=== PATIENT | female | born 1985 | race Caucasian/White ===

== ENCOUNTER → 2017-03-29 | Outpatient (CLI) | payer BC ==
[~2017-03-29] MED LIST: CALC500C3; DOCU50CA2; PRENTAB26 PO
== END | disposition home or self-care (01) ==
LOC: C.PAPS 11:58
PROVIDERS: ATTEND Obstetrics & Gynecology
DX: Z34.81 Encounter for supervision of other normal pregnancy, first trimester (principal)

== ENCOUNTER → 2017-03-29 | Outpatient (CLI) | payer BC ==
[2017-03-29 10:13] LABS: BASO % 0.2 %; BASO ABS # 0.02 K/uL (0-0.2); COMPLETE YES; EOS % 0.8 %; HEMATOCRIT 42.2 % (37-47); IG% 0.2 %; LYMPH % 16.8 %; LYMPH ABS # 1.44 K/uL (1.2-3.4); MEAN CELL VOLUME 89.8 fL (80-100); MEAN CORPUSCULAR HEMOGLOBIN 31.3 pg (25-34); MEAN CORPUSCULAR HGB CONC 34.8 g/dl (32-36); MEAN PLATELET VOLUME 11.9 fL (7.4-10.4); PLATELET COUNT 159 K/uL (130-400); WHITE BLOOD COUNT 8.58 K/uL (4.8-10.8)
[2017-03-29 11:29] LABS: URINE APPEARANCE TURBID (CLEAR); URINE BILIRUBIN NEG (NEG); URINE COLOR YELLOW; URINE NITRITE NEG (NEG); URINE PH 7.5 (4.5-7.5); URINE SPECIFIC GRAVITY 1.018 (1.000-1.030); UROBILINOGEN NEG (NEG)
[2017-03-29 11:30] LABS: MANUAL MICROSCOPIC REQUIRED? NO; REVIEW REQ? NO
[2017-03-30 13:32] LABS: CHLAMYDIA TRACH RNA*** NOT DETECTED (NOT DETECTED); GC (NEIS GONORRHOEAE)RNA** NOT DETECTED (NOT DETECTED)
== END | disposition home or self-care (01) ==
LOC: C.LAB1850 09:05
PROVIDERS: ATTEND Obstetrics & Gynecology
DX: Z34.81 Encounter for supervision of other normal pregnancy, first trimester (principal)

== ENCOUNTER → 2017-06-24 | Outpatient (CLI) | payer BC ==
[~2017-06-24] MED LIST changes: +METH0.2T39 PO; +METR500T PO; +OXYC-57 PO
== END | disposition home or self-care (01) ==
LOC: C.LAB1850 09:19
PROVIDERS: ATTEND Obstetrics & Gynecology
DX: O36.4XX0 Maternal care for intrauterine death, not applicable or unspecified (principal)

== ENCOUNTER → 2017-06-30 | Outpatient (CLI) | payer BC | END | disposition home or self-care (01) | LOC: C.LAB1850 10:49 | PROVIDERS: ATTEND Obstetrics & Gynecology | DX: O36.4XX0 Maternal care for intrauterine death, not applicable or unspecified (principal); Z3A.00 Weeks of gestation of pregnancy not specified ==

== ENCOUNTER 2017-12-29 20:34 | Emergency (ER) | payer BC, OTHER ==
[~2017-12-29] VITALS: Ht 162.6 cm; Wt 60.6 kg
[~2017-12-29 20:34] MED LIST changes: -CALC500C3; +CALC500C3 PO; -METR500T PO; -OXYC-57 PO
[2017-12-29 20:40] VITALS: TEMP 36.8; Ht 162.6 cm; Wt 60.6 kg
[2017-12-29 21:53] LABS: BASO % 0.5 %; BASO ABS # 0.04 K/uL (0-0.2); EOS % 2.3 %; EOS ABS # 0.17 K/uL (0-0.5); HEMATOCRIT 39.3 % (37-47); HEMOGLOBIN 13.6 g/dL (12.0-16.0); IG# 0.02 K/uL (0.00-0.02); LYMPH % 32.9 %; MEAN CELL VOLUME 88.9 fL (80-100); MEAN CORPUSCULAR HEMOGLOBIN 30.8 pg (25-34); MEAN CORPUSCULAR HGB CONC 34.6 g/dl (32-36); MEAN PLATELET VOLUME 10.7 fL (7.4-10.4); MONO % 6.4 %; MONO ABS # 0.47 K/uL (0.11-0.59); NEUT % 57.6 %; PLATELET COUNT 173 K/uL (130-400); RED CELL DISTRIBUTION WIDTH CV 11.8 % (11.5-14.5); RED CELL DISTRIBUTION WIDTH SD 38.6 fL (36.4-46.3)
[2017-12-29 22:12] LABS: ALBUMIN 3.8 gm/dl (3.4-5.0); TOTAL PROTEIN 7.5 gm/dl (6.4-8.2)
[2017-12-29] MEDS ORDERED: DOCU1TAB6 PO (22:18)
[2017-12-29 23:17] VITALS: BP 106/58; PULSE 56; O2SAT 98
--- NOTE | 2017-12-29 23:34 | EMERGENCY ROOM VISIT NOTE ---
History First contact with patient: 20:43 Chief Complaint: ABDOMINAL PAIN Stated Complaint: RIGHT ABDOMINAL PAIN History of Present Illness Patient is an otherwise healthy 32-year-old white female who presents emergency department for evaluation of right-sided abdominal pain that started fairly acutely about 2 and half hours ago. She reports that she just finished eating a dinner consisting of salmon, vegetables, sleep potatoes and rice from the pain started. She notes that it is in the right lower abdomen, radiating to the right upper abdomen underneath her ribs, and wrapping around to her back slightly. She states that she tried to have a bowel movement, which was successful and was normal for her, but did not change her pain. She also tried sipping on some tea without relief. She did not take any medications, and presently rates her pain a 5/10. She denies any nausea or vomiting. No urinary symptoms. Last menstrual period was about 1 week ago, and was normal for the patient. She denies any significant gynecologic history including ovarian cysts. She states that the pain is worse with movement, like bouncing in the car on the drive up. She has never had pain similar to this previously. Review of Systems Review of systems as per HPI. All other systems reviewed were negative. 10 systems reviewed. Past Medical/Surgical History Medical Problems: (1) Active labor at term (2) Intrauterine (3) No Known Active Medical Problems (4) Persistent occipitoposterior position (5) Prolonged rupture of membranes (6) Vaginal delivery Surgical Problems: (1) History of dilatation and curettage (2) History of wisdom tooth extraction Electronic medical records are reviewed and summarized as above/below. See Problem List. [id number] Social History Smoking Status: Never Smoker Alcohol Use: occasionally Marital Status: Housing Status: lives with family Current/Historical Medications Scheduled Multivit/Min/Iron/Fol Ac/Pren ( Vitamin), 1 TAB PO DAILY Scheduled PRN Calcium Carbonate (Tums), 1 TAB PO DIRECTED PRN for HEARTBURN/INDIGESTION Docusate Sodium (Docusate Sodium), 100 MG PO DIRECTED PRN for Constipation Physical Exam Vital Signs Date Time Temp Pulse Resp B/P (MAP) Pulse Ox O2 Delivery O2 Flow Rate FiO2 12/29/17 23:17 56 18 106/58 98 Room Air 12/29/17 20:40 36.8 74 18 119/72 99 Room Air Physical Exam CONSTITUTIONAL: Patient is a well-appearing 32-year-old white female who is awake and alert and in no acute distress EYES: Pupils equal, round, reactive to light and accommodation. EOMs intact without nystagmus. Sclera are anicteric. NECK: Supple without lymphadenopathy. No thyromegaly. No meningeal signs. Full active range of motion without discomfort. CARDIOVASCULAR: Regular rate and rhythm, with normal S1 and S2, no murmur or gallop or rub is heard. No carotid bruits auscultated. No JVD. Peripheral pulses easily palpable. RESPIRATORY: Breath sounds equal and clear to auscultation without wheezes, rales, or rhonchi heard. Full and equal chest expansion without accessory muscle use or retractions. ABDOMEN: Bowel sounds are present. Abdomen is soft, scaphoid, nondistended. Abdomen is nontender to percussion throughout. She has tenderness to deep palpation in the right lower quadrant primarily, very slight pain in the right upper quadrant, negative Good sign. No guarding, rebound or rigidity. No CVA tenderness. INTEGUMENTARY: No lesions or rash, normal skin turgor. LYMPH: No lymphadenopathy. Medical Decision & Procedures ER Provider Diagnostic Interpretation: Ultrasound per [facility] : Dr. Liang the uterus is normal in size. The endometrium is normal in thickness. The ovaries are normal in size and appearance. No free fluid in the pelvis. Per cardiac cath technician, appendix was not visualized by ultrasound and a lymph node was noted in the right lower quadrant. Laboratory Results 12/29/17 21:15 Red Blood Count 4.42, Mean Corpuscular Volume 88.9, Mean Corpuscular Hemoglobin 30.8, Mean Corpuscular Hemoglobin Concent 34.6, Mean Platelet Volume 10.7, Neutrophils (%) (Auto) 57.6, Lymphocytes (%) (Auto) 32.9, Monocytes (%) (Auto) 6.4, Eosinophils (%) (Auto) 2.3, Basophils (%) (Auto) 0.5, Neutrophils # (Auto) 4.20, Lymphocytes # (Auto) 2.40, Monocytes # (Auto) 0.47, Eosinophils # (Auto) 0.17, Basophils # (Auto) 0.04 12/29/17 21:15 Test 12/29/17 21:05 12/29/17 21:15 Urine Test NEG (NEG) White Blood Count 7.30 K/uL (4.8-10.8) Red Blood Count 4.42 M/uL (4.2-5.4) Hemoglobin 13.6 g/dL (12.0-16.0) Hematocrit 39.3 % (37-47) Mean Corpuscular Volume 88.9 fL (80-100) Mean Corpuscular Hemoglobin 30.8 pg (25-34) Mean Corpuscular Hemoglobin Concent 34.6 g/dl (32-36) Platelet Count 173 K/uL (130-400) Mean Platelet Volume 10.7 fL (7.4-10.4) Neutrophils (%) (Auto) 57.6 % Lymphocytes (%) (Auto) 32.9 % Monocytes (%) (Auto) 6.4 % Eosinophils (%) (Auto) 2.3 % Basophils (%) (Auto) 0.5 % Neutrophils # (Auto) 4.20 K/uL (1.4-6.5) Lymphocytes # (Auto) 2.40 K/uL (1.2-3.4) Monocytes # (Auto) 0.47 K/uL (0.11-0.59) Eosinophils # (Auto) 0.17 K/uL (0-0.5) Basophils # (Auto) 0.04 K/uL (0-0.2) RDW Standard Deviation 38.6 fL (36.4-46.3) RDW Coefficient of Variation 11.8 % (11.5-14.5) Immature Granulocyte % (Auto) 0.3 % Immature Granulocyte # (Auto) 0.02 K/uL (0.00-0.02) Anion Gap 4.0 mmol/L (3-11) Est Creatinine Clear Calc Drug Dose 69.8 ml/min Estimated GFR () 86.3 Estimated GFR (Non- 74.5 BUN/Creatinine Ratio 9.0 (10-20) Calcium Level 9.0 mg/dl (8.5-10.1) Total Bilirubin 0.3 mg/dl (0.2-1) Aspartate Amino Transf (AST/SGOT) 16 U/L (15-37) Alanine Aminotransferase (ALT/SGPT) 20 U/L (12-78) Alkaline Phosphatase 67 U/L (45-117) Total Protein 7.5 gm/dl (6.4-8.2) Albumin 3.8 gm/dl (3.4-5.0) Globulin 3.7 gm/dl (2.5-4.0) Albumin/Globulin Ratio 1.0 (0.9-2) Lipase 207 U/L (73-393) ED Course The patient was seen and assessed as above. Her old records were reviewed. IV lock was initiated and laboratory studies were collected. Urine sample was provided, dipped and was completely clear. test was negative. CBC with differential, CMP and lipase were also performed. White count is not elevated. Electrolytes, renal functions and liver functions are normal. Lipase is not elevated. A great deal of time was spent discussing imaging options with the patient and her father, including CT scan versus ultrasound, risks, benefits and alternatives to both forms of imaging, as well as other options including deferred imaging at this time. She would like to avoid the radiation of the CT scan if possible. Using shared decision making, the patient has elected to proceed with ultrasound. She notes that while she is sitting in the gurney, the pain really feels more to be localized in the right lower quadrant, and less in the right upper quadrant. Given this, pelvic ultrasound and transabdominal ultrasound to evaluate the right lower quadrant pain including for appendicitis or gynecologic source was ordered. Patient was reassessed when she returned from ultrasound. She tolerated the ultrasound without difficulty. Ultrasound reports were discussed with her and her father. At this point, the patient prefers to defer on CT scan. As she has only had pain in the right lower quadrant for a few hours, and has a benign abdominal exam at this time, it was felt that this was reasonable. She was educated on the worrisome signs or symptoms for which she should return to emergency department immediately, and was also advised to return tomorrow if her symptoms persist for reexamination and consideration of further diagnostic imaging studies. She expressed understanding of this and was agreeable. She is discharged home with her father in good condition. Differential diagnoses considered included UTI, pyelonephritis, renal colic, appendicitis, mesenteric adenitis, , ectopic , ovarian cyst, ovarian torsion, PID, tubo-ovarian abscess, hernia, musculoskeletal pain, shingles, among others. Medical Decision See ED Course. Medication Reconcilliation Current Medication List: was personally reviewed by me Blood Pressure Screening Patient's blood pressure: Normal blood pressure Blood pressure disposition: Did not require urgent referral Impression Primary Impression: Right lower quadrant abdominal pain Departure Information Referrals Liana Bkaer D.O. (PCP) Patient Instructions [facility] Additional Instructions Ibuprofen(Motrin, Advil) may be used for fever or pain. Use 600mg every six hours as needed. Take with food. Avoid using more than 2400mg in a 24 hour period. Do not use 2400mg per day for more than three consecutive days without physician direction. Prolonged inappropriate use can lead to stomach upset or ulcers. This is available over the counter and typically comes in 200mg tablets. (AND/OR) Acetaminophen(Tylenol) may be used for fever or pain. Use 1000mg every eight hours as needed. Avoid using more than 3000mg in a 24 hour period. This is available over the counter. Rest and drink plenty of fluids as tolerated. Slow sips of water or sports drinks are recommended instead of large amounts all at once. Continue current medications. Once your stomach is settled start with a clear liquid diet (jello, soup broth, etc.) and then advance as tolerated. You should avoid full, heavy meals for about 24 hrs from the time your symptoms resolved. Return to the ER immediately for worsening or persistent abdominal pain, vomiting, fevers, worsening of your condition, or as needed. Return to the ER in 8-12 hours for a recheck if symptoms have not improved for consideration of further workup (CT scan).
--- NOTE | 2017-12-30 06:32 | DIAGNOSTIC IMAGING REPORT ---
ABDOMEN LIMITED (US) HISTORY: 32 years-old Female RLQ PAIN X 3 HOURS, EVAL APPY acute right lower quadrant abdominal pain COMPARISON: None available TECHNIQUE: Multiple real-time sonographic images of the abdominal right lower quadrant were obtained assessing grayscale appearance and color flow FINDINGS: Nonenlarged lymph nodes of the abdominal right lower quadrant mesentery are noted. The appendix is not diagnostically visualized. No hyperemia, echogenic fat, hypoperistaltic bowel or focal fluid collections identified. IMPRESSION: Nonvisualization of the appendix. No secondary signs to suggest acute appendicitis. The above report was generated using voice recognition software. It may contain grammatical, syntax or spelling errors. Electronically signed by: Pedro Gaston M.D. 12/30/2017 6:31 AM Dictated Date/Time: 12/30/2017 6:29 AM
--- NOTE | 2017-12-30 07:00 | DIAGNOSTIC IMAGING REPORT ---
PELVIC COMPLETE NON OB CLINICAL HISTORY: 32 years-old Female presenting with RLQ PAIN X 3 HOURS, G4, P3. TECHNIQUE: Real-time grayscale and color and spectral Doppler ultrasound imaging of the pelvis was performed first using a transabdominal probe and subsequently transvaginal for better characterization. COMPARISON: None. FINDINGS: Uterus: Normal. Anteverted. The uterus measures 8.6 x 4.5 x 6.0 cm. Endometrial stripe measures 5 mm in thickness. Endometrium normal-appearing. Cervix normal. Right adnexa: Right ovary normal. Right ovary measures 2.6 x 1.1 x 1.8 cm. Normal color Doppler flow and arterial and venous waveforms within the ovarian parenchyma. Left adnexa: Left ovary normal. Left ovary measures 4.2 x 2.3 x 2.7 cm. Normal color Doppler flow and arterial and venous waveforms within the ovarian parenchyma. Other: No free fluid. IMPRESSION: No significant abnormality identified within the pelvis. No ovarian torsion. Electronically signed by: Roberto Fernandez M.D. 12/30/2017 6:58 AM Dictated Date/Time: 12/30/2017 6:54 AM
== END 2017-12-29 23:52 | disposition home or self-care (01) ==
LOC: C.EDB 20:34
DX: R10.31 Right lower quadrant pain (principal)

== ENCOUNTER → 2018-03-26 | Outpatient (CLI) | payer OTHER ==
[~2018-03-26] MED LIST changes: +DOCU1TAB6 PO; -DOCU50CA2; -METH0.2T39 PO
[2018-03-26 10:40] LABS: BASO % 0.3 %; BASO ABS # 0.02 K/uL (0-0.2); EOS ABS # 0.13 K/uL (0-0.5); IG# 0.01 K/uL (0.00-0.02); LYMPH % 31.3 %; LYMPH ABS # 2.08 K/uL (1.2-3.4); MEAN CELL VOLUME 91.3 fL (80-100); MEAN CORPUSCULAR HEMOGLOBIN 31.2 pg (25-34); MEAN CORPUSCULAR HGB CONC 34.1 g/dl (32-36); MONO % 7.2 %; MONO ABS # 0.48 K/uL (0.11-0.59); NEUT ABS # 3.93 K/uL (1.4-6.5); PLATELET COUNT 154 K/uL (130-400); RED CELL DISTRIBUTION WIDTH CV 12.3 % (11.5-14.5); RED CELL DISTRIBUTION WIDTH SD 41.3 fL (36.4-46.3); WHITE BLOOD COUNT 6.65 K/uL (4.8-10.8)
[2018-03-26 10:52] LABS: ALBUMIN 3.9 gm/dl (3.4-5.0); TOTAL PROTEIN 7.2 gm/dl (6.4-8.2)
== END | disposition home or self-care (01) ==
LOC: C.LAB1850 08:05
PROVIDERS: ATTEND Obstetrics & Gynecology
DX: Z32.01 Encounter for pregnancy test, result positive (principal); O09.299 Supervision of pregnancy with other poor reproductive or obstetric history, unspecified trimester; Z3A.00 Weeks of gestation of pregnancy not specified

== ENCOUNTER 2018-12-03 11:33 | Inpatient (IN) ==
[2018-12-03] MEDS ORDERED: OXYTOCIN 30 UNITS/500 ML BAG IV PRN ×2 (13:35→15:41)
[2018-12-03] MEDS ORDERED: LACTATED RINGER'S 1,000 ML IV PRN (13:35)
--- NOTE | 2018-12-03 13:41 | History & Physical Report ---
Date of Service December 03, 2018 Assessment & Plan (1) Normal labor: fetus category one. admit, expectant management. Anticipate . (2) 40 weeks gestation of : History of Present Illness Chief Complaint: contractions Primary Care Provider: Liana Baker DO Patient is a 33yowf with iup at 40 3/7 weeks with contractions . Hx of rapid labor. Watched and demonstrated cervical change so admitted. no bleeding, no lof. +fm. uncomplicated labs--AB+/ab-/pap nl/ ri/rprnr/hiv-/hepb-/gc/ct-/gtt x 2 nl/ gbs neg Allergies Allergy/AdvReac Type Severity Reaction Status Date / Time No Known Allergies Allergy Verified 10/26/18 21:46 Home Medications Home Medications Medication Instructions Recorded Confirmed Type vit-iron fum-folic ac 1 tab PO DAILY 10/26/18 10/26/18 History [ Vitamin] Patient History Medical History Anxiety History of chicken pox Hx of mastitis Hx of depression, currently Surgical History H/O oral surgery Social History marital status: Feels Safe at Home: Yes Smoking Status: Never smoker Hx Alcohol Use: No Hx Substance Use: No OB History g1--06/26, , 5#10 oz, 40 weeks g2--/, , 6#2oz /15--40 weeks, , 6#7oz /--19 week demise OPTOMETRIC AIDE History hx of matitis, hx of breast abscess no stds, no abnl paps. Review of Systems All systems reviewed & are unremarkable except as noted in HPI & below Physical Exam Vital Signs (Past 24 Hours): Last Vital Signs Temp 99.1 F 12/03/18 12:00 Pulse 82 12/03/18 12:00 Resp 22 12/03/18 12:00 BP 114/70 12/03/18 12:00 Constitutional: WD/WN, vitals as above Gastrointestinal (Abdomen): soft, gravid, nt Genitourinary: cx--stretchy 6/100/0 toco--irregular contractions, 2-5 min efm--135 with mod variability, small accels, no decels
[2018-12-03] MEDS ORDERED: LACTATED RINGER'S 1,000 ML IV SCH (13:45)
[2018-12-03 13:53] LABS: Hematocrit (blood only) 36.8 % (37-47); Hemoglobin 13.1 g/dL (12.0-16.0); Mean Corpuscular Volume 92.7 fL (80-100); Mean Platelet Volume 10.9 fL (7.4-10.4); Platelet Count 163 K/uL (130-400); RDW Coefficient of Variation 12.5 % (11.5-14.5); RDW Standard Deviation 42.3 fL (36.4-46.3); Red Blood Count 3.97 M/uL (4.2-5.4); White Blood Count 11.83 K/uL (4.8-10.8)
[2018-12-03] MEDS ORDERED: ePHEDrine sulfate 50 MG/ML AMP ONE (14:15)
[2018-12-03] MEDS ORDERED: BUPIVACAINE 0.25% 30 ML VIAL ONE (14:15)
[2018-12-03] MEDS ORDERED: fentaNYL citrate 100 MCG/2 ML VIAL ONE (14:15)
[2018-12-03] MEDS ORDERED: fentaNYL 2MCG/ML ROPIV 1.25MG/ML 100 ML BAG EPI ONE (14:16)
[2018-12-03 14:24] LABS: Mean Corpuscular Hgb Conc 35.6 g/dL (32-36)
[2018-12-03] MEDS ORDERED: SUPERCREAM 0.870% 15 GM JAR EXT PRN (15:41)
[2018-12-03] MEDS ORDERED: IBUPROFEN 600 MG TAB PO PRN (15:41)
[2018-12-03] MEDS ORDERED: BISACODYL 10 MG SUPP PR PRN (15:41)
[2018-12-03] MEDS ORDERED: OXYCODONE/ACETAMINOPHEN 5mg/325mg TAB PO PRN (15:41)
[2018-12-03] MEDS ORDERED: ACETAMINOPHEN 325 MG TAB PO PRN (15:41)
[2018-12-03] MEDS ORDERED: HYDROCORTISONE ACETATE 25 MG SUPP PR PRN (15:41)
[2018-12-03] MEDS ORDERED: BENZOCAINE 20% AER SPR 82.5 GM CAN EXT PRN (15:41)
[2018-12-03] MEDS ORDERED: DIPHTHERIA/TETANUS/PERTUSSIS 0.5 ML SYR/VIAL IM ONE (15:41)
[2018-12-03] MEDS: DOCUSATE SODIUM 100 MG CAP PO SCH (21:14)
--- NOTE | 2018-12-03 21:28 | Delivery Summary ---
DATE OF OPERATION: 12/03/2018 PREOPERATIVE DIAGNOSES: 1. Intrauterine at 40+ weeks. 2. Active labor. POSTOPERATIVE DIAGNOSES: 1. Intrauterine at 40+ weeks. 2. Active labor. PROCEDURES: 1. Artificial rupture of membranes. 2. Normal spontaneous vaginal delivery. SURGEON: Jo Ann Davila MD ANESTHESIA: None. ESTIMATED BLOOD LOSS: 300 mL. DESCRIPTION OF PROCEDURE: The patient presented to labor and delivery in early active labor. She progressed from 4-6 and was admitted. She then went from 6-8 quite quickly. She underwent an amniotomy for a minimal amount of clear fluid. Over the next 3 contractions, she progressed to complete and +2 and then pushed over 2 contractions to deliver a viable male in DIANE presentation. There was no nuchal cord. There was a hand up by the face. The rest of baby then delivered without difficulty. The was immediately vigorous. The nose and mouth were bulb suctioned. The cord was clamped and cut at approximately 1 minute of life. The patient delivered from hands and knees position. The placenta was delivered spontaneously intact with a 3-vessel cord. Sulci, perineum, and rectum were found to be intact. Hemostasis obtained with dilute Pitocin and fundal massage. Apgars 8 and 9. Mother and baby doing well at the end of the delivery. I attest to the content of the Intraoperative Record and any orders documented therein. Any exception s are noted below.
[2018-12-04 05:08] VITALS: O2SAT 98
[2018-12-04 06:46] LABS: Hematocrit (blood only) 36.7 % (37-47); Hemoglobin 12.8 g/dL (12.0-16.0)
[2018-12-04] MEDS: DOCUSATE SODIUM 100 MG CAP PO SCH ×2 (08:45→22:02)
[2018-12-04] MEDS: PRENATAL VITAMIN 1 TAB PO SCH (08:45)
--- NOTE | 2018-12-04 09:34 | Obstetrical Progress Note ---
Date of Service December 04, 2018 Assessment & Plan (1) state: Doing well. Routine care. Day #:: 1 Subjective Ambulation: ambulating normally Voiding: no voiding problems Passing Gas:: Yes Diet Tolerance:: regular diet Lochia:: Small Feeding Type:: breast feeding Patient feels well. No concerns. Physical Exam Vital Signs (Past 24 Hours) Last Vital Signs Temp 98.6 F 12/04/18 08:11 Pulse 65 12/04/18 08:11 Resp 20 12/04/18 08:11 BP 102/66 12/04/18 08:11 Pulse Ox 98 12/04/18 04:50 Constitutional WD/WN, vitals as above Cardiovascular Extremities: no calf tenderness, no pedal edema and no edema Gastrointestinal (Abdomen) soft, nt, nd fundus firm/nt 1 below u
[2018-12-04] MEDS ORDERED: BISACODYL 5 MG TABEC PO SCH (20:00)
--- NOTE | 2018-12-05 07:08 | Obstetrical Progress Note ---
Date of Service December 05, 2018 Assessment & Plan (1) state: Doing well. Plan d/c. Instructions given. Day #:: 2 Subjective Ambulation: ambulating normally Voiding: no voiding problems Passing Gas:: Yes Lochia:: Small Doing well. Routine care. Plan d/c. Instructions given. Physical Exam Vital Signs (Past 24 Hours) Last Vital Signs Temp 98.1 F 12/05/18 00:30 Pulse 60 12/05/18 00:30 Resp 16 12/05/18 00:30 BP 100/64 12/05/18 00:30 Pulse Ox 98 12/04/18 11:10 Constitutional WD/WN, vitals as above Cardiovascular Extremities: no calf tenderness, no pedal edema and no edema Gastrointestinal (Abdomen) soft, nd, nt fundus firm, nt 1 below u.
[2018-12-05] MEDS: DOCUSATE SODIUM 100 MG CAP PO SCH (09:16)
[2018-12-05] MEDS: PRENATAL VITAMIN 1 TAB PO SCH (09:16)
[2018-12-05 13:11] VITALS: BP 125/65; PULSE 71; TEMP 98.8
== END 2018-12-05 17:00 | disposition home or self-care (01) | DRG 807 ==
LOC: 4S1 11:33 → OPB 11:33 → 4S1 13:35 → 4S2 17:30